=== PATIENT | female | born 1955 | race Caucasian/White ===

== ENCOUNTER → 2017-10-05 19:03 | Outpatient (CLI) | payer OTHER, SELFPAY | PROVIDERS: Family Provider Internal Medicine; PCP Internal Medicine; Visit Provider Obstetrics & Gynecology | DX: N39.0 Urinary tract infection, site not specified (principal); N89.8 Other specified noninflammatory disorders of vagina | CPT/HCPCS: 87086; 87088 ==

== ENCOUNTER → 2017-10-19 13:51 | Outpatient (CLI) | payer OTHER, SELFPAY ==
--- NOTE | 2017-10-19 | MISC_PTH ---
PATIENT: BARBIE SANTOS LOC: [facility] U#:[id number] AGE/SX: 70/F ROOM: RE10/19/[address]: Dr. Ángel Sparrow MD : [id number] BED: DIS: SPEC #: [id number] RECD: 10/19/17 14:39 STATUS: CHRISTIANO JAZMIN #: [id number] AGUILAR: 10/19/17 00:[address]: Ángel Sparrow DEPT: SURGICAL PATHOLOGY RECD BY: Robbi Shirley ENTERED: 10/19/17 14:40 SP TYPE: [facility] [place] DR: Dr. Millie Adorno DO Tissues: A - Lip, NOS (labia) B - Lip, NOS (labia) Procedures: Surgery Specimen Level IV HEADER OPERATION: Vulvar labial biopsy PRE-OP DIAGNOSIS: Leukoplakia pruritus vulva; postmenopausal status TISSUE SUBMITTED: A ? Left labia, B ? Right labia, leukoplakia MICROSCOPIC DIAGNOSIS A. Left labia, biopsy: Mild chronic dermal inflammation. No evidence of dysplasia. B. Right labia, biopsy: Mild chronic dermal inflammation. No evidence of dysplasia. AM:wilder 10/22/17 COMMENT A & B. The lesions could represent early lichen sclerosus. Clinical correlation is suggested. Case has been reviewed in consultation with Dr. Cho who concurs with the above diagnosis. IDC:SJ MICROSCOPIC DESCRIPTION Slides are reviewed. GROSS DESCRIPTION A - Received in fixative is one container labeled with the patient's name and designated left labia. The specimen consists of one irregular fragment of light veneg[place] soft tissue that measures 0.8 x 0.3 x 0.1 cm. The specimen is totally submitted in one cassette. B - Received in fixative is one container labeled with the patient's name and designated right labia. The specimen consists of one irregular fragment of light venegas soft tissue that measures 0.2 x 0.1 x <0.1 cm. The specimen is totally submitted in one cassette. / AM:wilder 10/19/17 TC:3 CPT: 98348 x2
== END ==
PROVIDERS: Family Provider Internal Medicine; PCP Internal Medicine; Visit Provider Obstetrics & Gynecology
DX: N90.4 Leukoplakia of vulva (principal); L29.2 Pruritus vulvae; N95.9 Unspecified menopausal and perimenopausal disorder
CPT/HCPCS: 88305

== ENCOUNTER → 2017-11-02 19:35 | Outpatient (CLI) | payer OTHER, SELFPAY ==
[2017-11-06 11:34] LABS: HPV APTIMA, High Risk Negative (Negative)
== END ==
PROVIDERS: Family Provider Internal Medicine; PCP Internal Medicine; Visit Provider Obstetrics & Gynecology
DX: Z12.4 Encounter for screening for malignant neoplasm of cervix (principal)
CPT/HCPCS: 88175; G0145

== ENCOUNTER → 2018-01-05 14:52 | Outpatient (CLI) | payer OTHER, SELFPAY ==
--- NOTE | 2018-01-05 14:54 | BI_ITS ---
MAMMOGRAPHY - BILATERAL SCREENING REASON FOR EXAM: Female, 62 years old. Routine annual screening examination. PERTINENT HISTORY: NO FAM HX VAG PILL X 2 MONTHS NO SX HRT CHANGED 2 MONTHS AGO PT C/O BREAST TENDERNESS TECHNIQUE: Digital bilateral breast jared (3D mammographic acquisition) in the CC and MLO projections. 2-D mediolateral oblique (MLO) and craniocaudad (CC) views of both breasts were obtained. CAD: Full Field Digital Mammography with Computer Added Detection was performed. COMPARISON: Dec 08 2016 9:07am, Dec 07 2015 10:07am FINDINGS: Breast Composition: The breasts are extremely dense, which lowers the sensitivity of mammography. There are no dominant masses or suspicious calcifications. No other significant abnormalities are identified. BI/SCREENING MAMM (CAD), BILAT IMPRESSION: Stable bilateral screening mammogram. Yearly follow-up mammogram recommended. (A) ASSESSMENT CATEGORY: BIRADS Category 2: Benign. A letter regarding these results will be sent to the patient by the facility within 30 days. Approximately 10% of breast cancers are not detected by mammography. A normal mammogram should not delay biopsy of a clinically suspicious abnormality. [id number] Electronically Signed: Mandy Plaza MD at 13:26 EDT Tel , Service support ,
== END ==
PROVIDERS: Family Provider Internal Medicine; PCP Internal Medicine; Visit Provider Obstetrics & Gynecology
DX: Z12.31 Encounter for screening mammogram for malignant neoplasm of breast (principal)
CPT/HCPCS: 77063; 77067

== ENCOUNTER → 2019-01-06 | Outpatient (CLI) | payer OTHER, SELFPAY ==
--- NOTE | 2019-01-06 09:57 | BI_ITS ---
MAMMOGRAPHY - BILATERAL SCREENING 3-D TOMOSYNTHESIS REASON FOR EXAM: Female, 63 years old. Bilateral Screening 3-D tomosynthesis PERTINENT HISTORY: No significant family history. TECHNIQUE: 2-D mammograms and 3-D Tomosynthesis of the breast (s) were performed. CAD was performed. COMPARISON: January 05, 2018. FINDINGS: The breast composition is composed of scattered fibroglandular density. Scattered benign calcifications are seen. No dense spiculated masses or suspicious microcalcifications are identified. No architectural distortion is identified. There is no skin thickening or retraction. There has been no significant change since the prior study. BI/SCREENING MAMM (CAD), BILAT IMPRESSION: No mammographic signs of malignancy. Routine yearly mammograms recommended. ASSESSMENT CATEGORY: BIRADS Category 1: Negative. A letter regarding these results will be sent to the patient by the facility within 30 days. FOLLOW UP RECOMMENDATION: Yearly follow up mammogram recommended. (A) Approximately 10% of breast cancers are not detected by mammography. A normal mammogram should not delay biopsy of a clinically suspicious abnormality. Electronically Signed: Joseph Palmer MD at 14:31 EDT , Service support ,
== END | disposition home or self-care (01) ==
LOC: OPBI 09:56
PROVIDERS: Family Provider Internal Medicine; PCP Internal Medicine; Referring Provider Obstetrics & Gynecology; Visit Provider Obstetrics & Gynecology
DX: Z12.31 Encounter for screening mammogram for malignant neoplasm of breast (principal)
CPT/HCPCS: 77063; 77067

== ENCOUNTER → 2019-02-11 | Outpatient (CLI) | payer OTHER, SELFPAY ==
[2019-02-11 11:05] LABS: Hematocrit 39.9 % (37-47); Hemoglobin 13.1 g/dl (12.0-15.0); Mean Corp Hgb Conc 32.8 g/gl (32-36); Mean Corpuscular Hgb 30.8 pg (27.0-32.0); Mean Corpuscular Volume 93.9 fL (81-99); Mean Platelet Vol. 11.1 fl (6.2-12.0); Platelet Count 243 K/mm3 (150-450); RBC Distribution Width CV 13.3 % (11.6-14.6); RBC Distribution Width SD 45.2 fl (35.1-43.9); Red Blood Count 4.25 M/mm3 (4.2-5.4); White Blood Count 5.1 K/mm3 (4.4-11.0)
[2019-02-11 11:08] LABS: Scan Indicated on CBC? Y/N NO
[2019-02-11 11:18] LABS: D-Dimer Quantitative (DVT/PE) < 0.27 FEU/ug/m (0.27-0.49)
[2019-02-11 11:23] LABS: Albumin, Serum 4.1 g/dL (3.2-5.0); BUN 14 mg/dL (7-18); BUN/Creat Ratio 18.7 RATIO (10-20); Calcium,Total 9.8 mg/dL (8.5-10.1); Chloride 104 mmol/L (98-107); Creatinine, Serum 0.75 mg/dL (0.55-1.02); EST Glomerular Filtration Rate 83 mL/min (>60); Est Glom Filt Rate - Afr Amer 101 mL/min (>60); Glucose 96 mg/dL (74-106); Phosphorus 3.6 mg/dL (2.5-4.9); Potassium 4.7 mmol/L (3.5-5.1); Sodium Level 139 mmol/L (136-145); T4 Free Direct 0.91 ng/dL (0.76-1.46); Thyroid Stim Hormone (TSH) 1.83 uIU/mL (0.358-3.74)
== END | disposition home or self-care (01) ==
LOC: LABSPEC 10:54
PROVIDERS: Family Provider Internal Medicine; PCP Internal Medicine; Referring Provider Internal Medicine; Visit Provider Internal Medicine
DX: R00.2 Palpitations (principal)
CPT/HCPCS: 80069; 84439; 84443; 85027; 85379

== ENCOUNTER 2019-05-25 09:50 | Outpatient (RCR) | payer OTHER, SELFPAY ==
--- NOTE | 2019-05-25 10:57 | HP.PTEVAL ---
Patient's Visit Information BARBIE SANTOS is a 64 year old F referred to Physical Therapy by Ria Lopez DO with a diagnosis of L buttock pain/Ischial tuberosity pain. Date of Evaluation: 05/25/19 Physical Therapist: MAURISIO Hassan - Visit Plan Frequency: 1-2x /Week Duration: 4 Weeks Plan: 1-2X/ week for 4 weeks if needed for foam rolling to L HS/piriformis, HS and piriformis stretching, MT deep/ US to the L ischial tuberoisuty if needed, Hip including HS strengthening with I HEP. - Subjective Findings: Pt reports that she has L ischial tuberosity butt pain and it is hard to sit and it has been 3 weeks now. She had been walking every day and yoga and has tried to lay off. She was offered prednizone but did not want it as she just got off of it due to poison giovany. There was no injurry. SHe did have this a year ago and sat on bleechers for awhile. It is hard to sit and bend over, move, and she feels it going up the stairs. She feels pulling when laying down but not throbbing. No N&T and not back pain. The only thing she did around the time it started was when she was bending to do gardening... noticed it the next day. She does not feel weakness in her legs. It is better since a few weeks ago but she has backed off her exercises. Getting in and out of the car is one of the worst things. - Pain L buttock pain Pain Intensity (Out of 10): 5 Pain Intensity Range: 8 - Objective Gait: decreased stance time on the L side. LE MMT: B hip flex 4-/5, B knee flex and ext 4/5, B hip abd 4/5, B hip ext 4/5. Pt is able to walk on heels and toes I and has full ROM bridge. Pt is point tender on the L ischial tuberosity. Pt has tight HS on the L and tight piriformis on the L. Prone press ups X 10 ( no change in ischial pain). Point tenderness with foam rolling over the L ischial tuberosity - Goals Goal 1:: I HEP Goal Time Frame: 2-4 Weeks Goal 2:: Decrease L buttock hip pain to 0/10 with return to walking routine and yoga Goal Time Frame: 2-4 Weeks Goal 3:: Increase HS and priformis flexibity to normal on the L Goal Time Frame: 2-4 Weeks - Rehabilitation Potential Rehabilitation Potential: Good - Anticipated Interventions Thank you for the opportunity to evaluate your patient. For Medicare and Medicare HMO plans, please review the plan of care and approve it. It will need to be FAXED BACK to us at [phone] for Medicare purposes. For Medicare only, by signing this I certify the plan of care. Please let me know if there are questions or concerns regarding this plan of care. Physician Signature: Date:
--- NOTE | 2019-06-28 14:00 | HP.PT.NRP ---
HP - Discharge Summary (1) - Patient Information BARBIE SANTOS was seen in my office for initial evaluation on 05/25/19. The following Plan of Care was established for this patient: Initial Frequency: 1-2x /Week Initial Duration: 4 Weeks This patient was last seen in our office 05/25/19. Pertinent comments regarding their Physical therapy will appear below: Pt did not return after inital eval and will be discharged. At this point I will be discontinuing this patient from physical therapy. I would be happy to see this patient again in the future if found appropriate by the physician. Thank you! Roxanne Christopher, MPT
== END 2019-05-25 19:00 | disposition home or self-care (01) ==
LOC: PT 09:50
PROVIDERS: Family Provider Internal Medicine; PCP Internal Medicine; Referring Provider Internal Medicine; Visit Provider Internal Medicine
DX: R52 Pain, unspecified (principal)
CPT/HCPCS: 97110; 97161

== ENCOUNTER 2019-07-18 07:30 | Outpatient (RCR) | payer SELFPAY ==
--- NOTE | 2019-08-23 11:46 | HP.PT.NRP ---
HP - Discharge Summary (1) - Patient Information BARBIE SANTOS was seen in my office for initial evaluation on . The following Plan of Care was established for this patient: This patient was last seen in our office . Pertinent comments regarding their Physical therapy will appear below: Self pay dry needling- appropriate to d/c chart At this point I will be discontinuing this patient from physical therapy. I would be happy to see this patient again in the future if found appropriate by the physician. Thank you! DIRK YarbroughT
== END 2019-07-18 19:00 | disposition home or self-care (01) ==
LOC: PT 07:30
PROVIDERS: Family Provider Internal Medicine; PCP Internal Medicine
DX: R10.2 Pelvic and perineal pain (principal)

== ENCOUNTER → 2020-03-21 | Outpatient (CLI) | payer OTHER, SELFPAY ==
[2020-03-28 03:50] LABS: HPV Reflexed? NOT INDICATED
== END | disposition home or self-care (01) ==
LOC: LABSPEC 13:10
PROVIDERS: PCP Internal Medicine; Visit Provider Obstetrics & Gynecology
DX: Z12.4 Encounter for screening for malignant neoplasm of cervix (principal)
CPT/HCPCS: 88175; G0145

== ENCOUNTER → 2020-05-31 | Outpatient (CLI) | payer OTHER, SELFPAY ==
--- NOTE | 2020-05-31 14:15 | BI_ITS ---
MAMMOGRAPHY - BILATERAL SCREENING REASON FOR EXAM: Female, 65 years old. Routine annual screening examination. PERTINENT HISTORY: Non-contributory. TECHNIQUE: Digital bilateral breast sergo (3D mammographic acquisition) in the CC and MLO projections. 2-D mediolateral oblique (MLO) and craniocaudad (CC) views of both breasts were obtained. CAD: Full Field Digital Mammography with Computer Added Detection was performed. COMPARISON: Comparison is made with prior examination dated 01/06/2019 and 01/05/2018. FINDINGS: Breast Composition: There are scattered areas of fibroglandular density. There are no dominant masses or suspicious calcifications. No other significant abnormalities are identified. There has been no significant change since the prior study. BI/SCREEN MAMM (CAD) W/SERGO BILAT IMPRESSION: Stable bilateral screening mammogram. Yearly follow-up mammogram recommended. (A) ASSESSMENT CATEGORY: BIRADS Category 1: Negative. A letter regarding these results will be sent to the patient by the facility within 30 days. Approximately 10% of breast cancers are not detected by mammography. A normal mammogram should not delay biopsy of a clinically suspicious abnormality. [id number] Electronically Signed: Chin Resendez, at 15:27 EDT , Service support ,
== END | disposition home or self-care (01) ==
LOC: OPBI 14:12
PROVIDERS: PCP Internal Medicine; Referring Provider Obstetrics & Gynecology; Visit Provider Obstetrics & Gynecology
DX: Z12.31 Encounter for screening mammogram for malignant neoplasm of breast (principal)
CPT/HCPCS: 77063; 77067

== ENCOUNTER 2020-07-19 15:57 | Outpatient (RCR) | payer SELFPAY ==
--- NOTE | 2020-08-16 10:53 | HP.PT.NRP ---
BARBIE Yohannes SANTOS was seen in my office for initial evaluation on . The following Plan of Care was established for this patient: This patient was last seen in our office . Pertinent comments regarding their Physical therapy will appear below: Dry Needle- self pay-dc chart At this point I will be discontinuing this patient from physical therapy. I would be happy to see this patient again in the future if found appropriate by the physician. Thank you! DIRK YarbroughT
== END 2020-07-19 19:00 | disposition home or self-care (01) ==
LOC: PT 15:57
PROVIDERS: PCP Internal Medicine
DX: R69 Illness, unspecified (principal)

== ENCOUNTER 2020-09-18 09:30 | Outpatient (RCR) | payer OTHER, SELFPAY ==
--- NOTE | 2020-09-14 12:39 | HP.OTEVAL ---
Patient's Visit Information BARBIE SANTOS is a 65 year old F, referred to Occupational Therapy by Dr. Ria Lopez DO, with a diagnosis of right hand pain. Date of Evaluation: 09/13/20 Occupational Therapist: Sary De Anda, BENTLEYR/Cheikh, CHT - Subjective This 65 year old female was seen for OT with dx of hand pain. Pt states she was seen last year to hand specialsit who dx with tenosynovitis- pt states she has had difficulty with returning back to her daily tasks. pt states she does do yoga, plays the Volvant, difficulty sleeping- February- Apr pain until she went to Dr. has had cortisone shot but has not been -. pt states she has iced in the past. pt states she does wear a right wrist brace. - Pain right hand 3 Pain Intensity Range: 7, 8 - ROM Wrist: right 40/55 left 60/70 - Strength Chemical Operations Specialist: right 15# left 40# Lateral Pinch: right 2# left 8# Tripod Pinch: right 4# left 10# - Goals Goal:: PT will demo an increase in butter production supervisor strength by 20# to increase independent with basic occupations of daily living to return pt to PLOF by D/C. Pt will demo an increase in lateral and tripod pinch by 2# to increase pts independent with opening baggies, containers at PLOF by D/C. Goal:: Pt will demo an increase in wrist ROM equal to unaffected wrist to return pt to PLOF with grooming, dressing and home mtg tasks by D/C. Goal:: Pt will report pain no greater than 1/10 with use of affected hand with BADLs and IADLs by d/c. Goal:: Pt will demo understanding of joint protection and ergonomics when performing BADLs and IADLs by d/c. Pt will demo understanding of adaptive Equipment use to decrease stress on joints to allow pt to perform BADSL and IADLS at SHANNA level. - Rehabilitation General Assessment: pt demo with pain and limited ROM and strength to perform her ADLs and IADLs at a IND. level. pt would benefit from skilled OT services 2x week for 4 weeks to decrease pts pain increase pts strength and return pt to PLOF with ADLs and IADLs. pt demo understanding and agree to POC Rehabilitation Potential: Good - Anticipated Interventions A/AAROM/PROM, Strengthening, Triggerpoint Release, Desensitization, Modalities, Orthoses, Joint Protection/Energy Conservation, Ergonomic Education - Visit Plan Frequency: 2x /Week Duration: 4 Weeks TEXT: Thank you for the opportunity to evaluate your patient. For Medicare and Medicare HMO plans, please review the plan of care and approve it. It will need to be FAXED BACK to us at [phone] for Medicare purposes. Please let me know if there are questions or concerns regarding this plan of care. Physician Signature: Date:
--- NOTE | 2020-12-20 09:55 | HP.OT.NRP ---
BARBIE SANTOS was seen in my office for initial evaluation on 09/13/20. The following Plan of Care was established for this patient: Initial Frequency: 2x /Week Initial Duration: 4 Weeks Anticipated Interventions: A/AAROM/PROM, Strengthening, Triggerpoint Release, Desensitization, Modalities, Orthoses, Joint Protection/Energy Conservation, Ergonomic Education This patient was last seen in our office 09/18/20. Pertinent comments regarding their Occupational therapy will appear below: pt was seen for 2 OT sessions- [facility] and due to time lapse in services pt is d/c At this point I will be discontinuing this patient from occupational therapy. I would be happy to see this patient again in the future if found appropriate by the physician. Thank you! Sary De Anda, OTR/L, CHT
== END 2020-09-18 19:00 | disposition home or self-care (01) ==
LOC: OT 09:30
PROVIDERS: PCP Internal Medicine; Referring Provider Internal Medicine; Visit Provider Internal Medicine
DX: M79.643 Pain in unspecified hand (principal)
CPT/HCPCS: 97035; 97140; 97166; 97530

== ENCOUNTER → 2021-05-29 10:12 | Outpatient (CLI) | payer MEDICARE, OTHER, SELFPAY ==
[2021-05-29 11:29] LABS: Absolute Neutrophil Count 4.2 X10^3/uL (2.0-7.7); Basophil# 0.04 X10^3/uL; Basophil% 0.6 % (0-1); Eosinophil# 0.16 X10^3/uL; Eosinophils% 2.6 % (0-5); Hematocrit 39.3 % (37-47); Lymphocyte % 22.4 % (19-41); Mean Corp Hgb Conc 33.1 g/dL (32-36); Mean Corpuscular Hgb 31.6 pg (27.0-32.0); Mean Corpuscular Volume 95.6 fL (81-99); Mean Platelet Vol. 10.3 fl (6.2-12.0); Monocyte# 0.42 X10^3/uL; Monocyte% 6.7 % (0-10); NRBC Flagged by Analyzer 0 % (0-5); Neutrophil # 4.21 X10^3/uL (2.7-7.7); Neutrophil % 67.4 % (47-70); Platelet Count 303 K/mm3 (150-450); RBC Distribution Width CV 12.7 % (11.6-14.6); RBC Distribution Width SD 44.5 fl (35.1-43.9); Red Blood Count 4.11 M/mm3 (4.2-5.4); White Blood Count 6.3 K/mm3 (4.4-11.0)
[2021-05-29 11:55] LABS: AST(SGOT) 27 U/L (15-37); Alanine Aminotransfer ALT/SGPT 28 U/L (13-56); Alkaline Phosphatase 114 U/L (45-117); Bilirubin, Direct 0.09 mg/dL (0.00-0.30); Globulin 4.2 g/dL (2.2-4.2); Protein, Total 8.2 g/dL (6.4-8.2)
[2021-05-29 12:33] LABS: HIV - WCH Non-Reactive (Nonreactive); Hepatitis B Surface Antibody Non-Reactive; Hepatitis B Surface Antigen Non-Reactive (Nonreactive); Hepatitis C Antibody Non-Reactive (Nonreactive)
[2021-06-02 03:07] LABS: QNTFERON TB Mitogen Value > 10.00 IU/mL (.); QNTFERON TB Nil Value 0.03 IU/mL (.); QNTFERON TB1+ Ag Value 0.03 IU/mL (.); QNTFERON TB2+ Ag Value 0.05 IU/mL (.)
[2021-06-02 08:38] LABS: Hepatitis B Core AB IgM Negative (Negative); QNTIFERON TB Positive Criteria Negative (Negative)
== END ==
LOC: LAB 10:18
PROVIDERS: PCP Internal Medicine; Referring Provider Dermatology; Visit Provider Dermatology
DX: L30.9 Dermatitis, unspecified (principal); Z79.899 Other long term (current) drug therapy
CPT/HCPCS: 36415; 80076; 85025; 86480; 86703; 86705; 86706; 86803; 87340

== ENCOUNTER 2021-07-22 12:24 | Outpatient (RCR) | payer SELFPAY ==
--- NOTE | 2021-08-14 09:25 | HP.PT.NRP ---
BARBIE SANTOS was seen in my office for initial evaluation on . The following Plan of Care was established for this patient: This patient was last seen in our office . Pertinent comments regarding their Physical therapy will appear below: DN self pay d/c At this point I will be discontinuing this patient from physical therapy. I would be happy to see this patient again in the future if found appropriate by the physician. Thank you! DIRK YarbroughT
== END 2021-07-22 19:00 | disposition home or self-care (01) ==
LOC: PT 12:24
PROVIDERS: PCP Internal Medicine
DX: R69 Illness, unspecified (principal)

== ENCOUNTER → 2021-08-21 11:21 | Outpatient (CLI) | payer MEDICARE, OTHER, SELFPAY ==
--- NOTE | 2021-08-21 11:23 | BI_ITS ---
MAMMOGRAPHY - BILATERAL SCREENING REASON FOR EXAM: Female, 66 years old. Routine annual screening examination. PERTINENT HISTORY: Non-contributory. TECHNIQUE: Digital bilateral breast sergo (3D mammographic acquisition) in the CC and MLO projections. 2-D mediolateral oblique (MLO) and craniocaudad (CC) views of both breasts were obtained. CAD: Full Field Digital Mammography with Computer Added Detection was performed. COMPARISON: Comparison is made with prior study to 05/31/2020 and 01/06/2019. FINDINGS: Breast Composition: There are scattered areas of fibroglandular density. There are no dominant masses or suspicious calcifications. No other significant abnormalities are identified. There has been no significant change since the prior study. BI/SCRN MAMM (CAD)W/SERGO BILAT IMPRESSION: Stable bilateral screening mammogram. Yearly follow-up mammogram recommended. (A) ASSESSMENT CATEGORY: BIRADS Category 1: Negative. A letter regarding these results will be sent to the patient by the facility within 30 days. Approximately 10% of breast cancers are not detected by mammography. A normal mammogram should not delay biopsy of a clinically suspicious abnormality. [id number] Electronically Signed: Chin Resendez MD at 12:06 EST , Service support ,
== END ==
PROVIDERS: PCP Internal Medicine; Referring Provider Obstetrics & Gynecology; Visit Provider Obstetrics & Gynecology
DX: Z12.31 Encounter for screening mammogram for malignant neoplasm of breast (principal)
CPT/HCPCS: 77063; 77067

== ENCOUNTER 2021-09-13 10:00 | Outpatient (RCR) | payer MEDICARE, OTHER, SELFPAY ==
--- NOTE | 2021-08-12 10:53 | HP.PTEVAL_ITS ---
Patient's Visit Information BARBIE SANTOS is a 66 year old F referred to Physical Therapy by ANNA Mata with a diagnosis of R fib fracture. Date of Evaluation: 08/12/21 Physical Therapist: Juarez Pillai, DIRKT, OCS, CSCS - Visit Plan Frequency: 1x/Week Duration: 4-6 Weeks Plan: weekly to every other for progression of HEP ROM and strength/proprioception. Next session if steps are reciprocal without pain and ROM full then teach strength ankle and steamboats for HEP. Ensure progression of walking program at home - Subjective Broke R ankle. Rolled in end Of June walking off a mat. Happened on way [place] and went to urgent care that day and x ray the next day. Put in aircasrt and stayed off of it and ice and elevate. Used WC at home as she lives in ranch home. Has shower chair. Then went to [facility] and had more x rays to clear medial side. Then was allowed to bear weight with aircast. Now is FWB since last Thursday with ankle brace. Is a little more sore but still improving overall. Has walked up and down street 3x and gave up shower chair. Needs to ice it now and then. Still swells at t imes. Wears brace at home until evening. Pain is not a problem and never was other than tenderness. Sleep is OK. Wants to get back to walking a few miles per day and cross country ski. Needs to climb bleachers as she crawled up bleachers last week. - Objective Walks into PT fairly well, I without antalgia. Trasnfers I. Steps reciprocal with some R ankle discomfort desdcending planting on R. SLS R 4 sec and L 10 sec. AROM R ankle DF 2 and L is 8, PF 55 B, inv and ev symmetrical. No pain until OP of DF and inv slightly. No unusual swelling or tenderness today. Strength DF 4R and 4+ L, inv 4- R and 4 L, eversion 4- R and 4 L, PF 4 B. Sensation to touch is WNL B ankles and feet. reflexes 2/3 patella and achilles B. Strength knees and hips 4- symmetrical. - Balance/Special Test Scores Functional Gait Assessment Score: 29 % Disability: 3.3400 Lower Extremity Functional Score: 42 - Goals Goal 1:: 30/30 FGA including up and down steps without pain or railings Goal Time Frame: 4-6 Weeks Goal 2:: I approp HEP to get back to normal Goal Time Frame: 4-6 Weeks Goal 3:: Walk 3 miles without pain or problems Goal Time Frame: 4-6 Weeks Goal 4:: Pt feel 100% back to normal activity. Goal Time Frame: 4-6 Weeks Goal 5:: 62 LEFS Goal Time Frame: 4-6 Weeks - Rehabilitation Potential Physical Therapy Diagnosis: Some gait deficits from R fib fracture. Rehabilitation Potential: Excellent - Anticipated Interventions Patient/Client Instruction: Educate patient on: Condition, Plan of Care For the Purpose of:: To increase ROM, To improve nutrient delivery to tissue, To increase tolerance to activity/condition/position, To improve ability of physical actions for home/community/work/leisure, To improve gait and locomotor functions Therapeutic Exercise to Include: Strength training, Balance training, Flexibilty training, Gait and locomotor training, Passive ROM, Active ROM For the Purpose of:: To increase ROM, To improve muscle performance and motor function, To increase tolerance to activity/condition/position, To improve ability of physical actions for home/community/work/leisure, To improve gait and locomotor functions Thank you for the opportunity to evaluate your patient. For Medicare and Medicare HMO plans, please review the plan of care and approve it. It will need to be FAXED BACK to us at [phone] for Medicare purposes. For Medicare only, by signing this I certify the plan of care. Please let me know if there are questions or concerns regarding this plan of care. Physician Sign ature: Date:
--- NOTE | 2021-09-13 10:29 | HP.PTDCSUM_ITS ---
It has been my pleasure to treat BARBIE SANTOS referred by ANNA Mata, with the diagnosis of R fib fracture for a total of 3 visit(s). Discharge Date: 09/13/21 Please see the following information for a summary of their discharge status. Subjective: No problems. walking normal amount without pain. [facility]ed at [facility] with friends without a problem. Sleeping OK. HEP going well. Balance feels OK. % Improvement: 100 Objective/Function: Full and symmetrical aROM R to L ankle. strength is symmet rical at 4+/5 in all directions. FGA is perfect Goal 1:: FGA including up and down steps without pain or railings Goal Progress: Goal Met Goal 2:: I approp HEP to get back to normal Goal Progress: Goal Met Goal 3:: Walk 3 miles without pain or problems Goal 4:: Pt feel 100% back to normal activity. Goal Progress: Goal Met Goal 5:: 62 LEFS Goal Progress: Goal Met Plan: d/c, pt doing very well adn back to normal activity. If there are questions or concerns regarding this patient's physical therapy, please feel free to call me at [phone]. Thank you for the referral of this patient. Sincerely, Juarez Pillai, DPT, OCS, CSCS Balance/Gait/Functional tests - Balance/Special Test Scores Functional Gait Assessment Score: 30 % Disability: 0 Lower Extremity Functional Score: 64
== END 2021-09-13 19:00 | disposition home or self-care (01) ==
LOC: PT 10:00
PROVIDERS: PCP Internal Medicine; Referring Provider Physician Assistant Surgical; Visit Provider Physician Assistant Surgical
DX: S82.64XD Nondisplaced fracture of lateral malleolus of right fibula, subsequent encounter for closed fracture with routine healing (principal)
CPT/HCPCS: 97110; 97161; 97164; 97530

== ENCOUNTER → 2022-01-30 | Outpatient (CLI) | payer MEDICARE, OTHER, SELFPAY ==
--- NOTE | 2022-01-30 08:26 | BD_ITS ---
STUDY: DUAL ENERGY X-RAY ABSORPTIOMETRY / DXA REASON FOR EXAM: Female, 66 years old. [id number]. Patient is postmenopausal. TECHNIQUE: Bone Mineral Density (BMD) measurements of lumbar spine and bilateral hips were obtained. COMPARISON: Comparison is made with prior study dated 07/01/2017. FINDINGS: Lumbar Spine (L1-L4): g/cm2 (0.789) / T-score (-2.3) / Z-score (-0.5) Findings are suggestive of osteopenia with a high fracture risk. Left Femur Total: g/cm2 (0.900) / T-score (0.3) / Z-score (0.9) Left Femoral Neck: g/cm2 (0.783) / T-score (-0.6) / Z-score (1.0) Right Femur Total: g/cm2 (0.859) / T-score (-0.7) / Z-score (0.6) Right Femoral Neck: g/cm2 (0.777) / T-score (-0.7) / Z-score (0.9) The T-Scores on the most recent prior examination were: Lumbar Spine (L1-L4): There has been worsening of bone density since the previous examination. Left Femur Total: which represents a worsening of 7.2%. Right Femur Total: which represents a worsening of 8.7%. BD/Dexa Bone Density Study IMPRESSION: The patient is considered osteopenic as outlined below according to World Jovi Organization (WHO) criteria with a high fracture risk. There has been worsening of bone density since the previous examination. Reference Information: The T-score is the number of standard deviations above or below the standard which is normal for young adults at their peak bone mineral density. The World Health Organization (WHO) interprets the T-scores as follows: Above -1 Normal bone density Between -1 and -2.5 Osteopenia Equal to / or below -2.5 Osteoporosis As a practical clinical guideline, osteopenia may be graded as follows: Mild -1 through -1.5 Moderate -1.6 through -2.0 Severe -2.1 through -2.4 The Z-score is the number of standard deviations above or below age-matched controls. A Z-score of less than -1.5 would be considered abnormal. References: 1. NIH Osteoporosis and Related Bone Diseases www osteo.org 2. International Society for Clinical Densitometry www iscd.org 3. National Osteoporosis Foundation www nof.org Electronically Signed: Chin Resendez MD at 12:53 EDT ,
== END | disposition home or self-care (01) ==
LOC: OPBD 08:22
PROVIDERS: PCP Internal Medicine; Visit Provider Internal Medicine
DX: Z78.0 Asymptomatic menopausal state (principal)
CPT/HCPCS: 77080

== ENCOUNTER → 2022-07-14 | Outpatient (CLI) | payer SELFPAY ==
--- NOTE | 2022-07-14 12:35 | CT_ITS ---
STUDY: CT Chest W/O Contrast Injection 07/14/2022 1:41 PM REASON FOR EXAM: Female, 67 years old. SCREENING Individualized dose optimization techniques were used for this CT. TECHNIQUE: Transaxial imaging was performed withoutIV contrast material. COMPARISON: None. FINDINGS: There is no pneumothorax. There is no demonstrated pleural abnormality. Normal heart and pericardium with no evidence for calcifications of the coronary arteries. Normal mediastinum. Normal hilar regions. Normal pulmonary arteries. There is atherosclerotic calcification of the aortic arch with tortuosity and elongation of the aortic arch and descending thoracic aorta. There are multi-level degenerative changes of the thoracic spine. There are no acute findings of the upper abdomen. CT/Limited Chest CT Cardiac Only IMPRESSION: There are no acute findings. Electronically Signed: Alan Sauer MD at 14:23 EST ,
[2022-07-14 12:54] VITALS: BP 141/74; PULSE 58; RESP 18; TEMP 36.6; O2SAT 98; BMI 25.7
--- NOTE | 2022-07-14 18:10 | CA.SCORE ---
Calcium Scoring Date of Study:: 07/14/22 Coronary Calcium Scoring: High-resolution Computed Tomographic imaging of the chest was performed on [07/14/22 ], with particular attention paid to the coronary arteries. Images from the examination were analyzed for the presence and extent of coronary artery calcification , using coronary calcium quantification software. The patient tolerated the procedure well and there were no complications. The results of the coronary calcification analysis are provided below. Findings Coronary Artery Left Main (LM): 0 Left Anterior Descending (LAD): 0 Left Circumflex (LCX): 0 Right Coronary Artery (RCA): 0 Total Agatston Score: 0 Percentile Rankin Calcium Scoring Interpretation: 0 No identifiable atherosclerotic plaque. Very low cardiovascular disease risk. <5% chance of presence coronary artery disease A Negative Examination 1-10 Minimal Plaque burden. Significant coronary artery disease very unlikely. 11-100 Mild plaque burden. Likely mild or minimal coronary atherosclerosis. 101-400 Moderate plaque burden Moderate non-obstructive coronary artery disease highly likely. Over 400 Extensive plaque burden. High likelihood of at least one significant coronary stenosis (>50% diameter) Calcium Score: 0 Negative Examination
== END | disposition home or self-care (01) ==
PROVIDERS: PCP Internal Medicine; Referring Provider Internal Medicine; Visit Provider Internal Medicine
DX: E78.00 Pure hypercholesterolemia, unspecified (principal)
CPT/HCPCS: 75571; 76380

== ENCOUNTER → 2022-09-29 | Outpatient (CLI) | payer MEDICARE, OTHER, SELFPAY ==
--- NOTE | 2022-09-29 12:09 | BI_ITS ---
MAMMOGRAPHY - BILATERAL SCREENING REASON FOR EXAM: Female, 67 years old. Routine annual screening examination. PERTINENT HISTORY: Non-contributory. TECHNIQUE: Digital bilateral breast sergo (3D mammographic acquisition) in the CC and MLO projections. 2-D mediolateral oblique (MLO) and craniocaudad (CC) views of both breasts were obtained. CAD: Full Field Digital Mammography with Computer Added Detection was performed. COMPARISON: Comparison is made with prior examination dated 08/21/2021 and 05/31/2020. FINDINGS: Breast Composition: There are scattered areas of fibroglandular density. There are no dominant masses or suspicious calcifications. Stable small benign appearing bilateral axillary lymph nodes. No other significant abnormalities are identified. There has been no significant change since the prior study. BI/SCRN MAMM (CAD)W/SERGO BILAT IMPRESSION: Stable bilateral screening mammogram. Yearly follow-up mammogram recommended. (A) ASSESSMENT CATEGORY: BIRADS Category 1: Negative. A letter regarding these results will be sent to the patient by the facility within 30 days. Approximately 10% of breast cancers are not detected by mammography. A normal mammogram should not delay biopsy of a clinically suspicious abnormality. [id number] Electronically Signed: Chin Resendez MD at 13:20 EST ,
== END | disposition home or self-care (01) ==
LOC: OPBI 12:06
PROVIDERS: PCP Internal Medicine; Visit Provider Internal Medicine
DX: Z12.31 Encounter for screening mammogram for malignant neoplasm of breast (principal)
CPT/HCPCS: 77063; 77067

== ENCOUNTER → 2022-11-04 | Outpatient (CLI) | payer MEDICARE, OTHER, SELFPAY ==
[2022-11-04 12:24] LABS: Absolute Lymphocyte Count 1.48 X10^3/uL (0.83-4.51); Absolute Neutrophil Count 3.4 X10^3/uL (2.0-7.7); Basophil# 0.05 X10^3/uL; Basophil% 0.9 % (0-1); Eosinophil# 0.24 X10^3/uL; Eosinophils% 4.3 % (0-5); Hematocrit 38.3 % (37-47); Hemoglobin 12.6 g/dL (12.0-15.0); Lymphocyte # 1.48 X10^3/ul (0.83-4.51); Lymphocyte % 26.3 % (19-41); Mean Corp Hgb Conc 32.9 g/dL (32-36); Mean Corpuscular Hgb 30.5 pg (27.0-32.0); Mean Corpuscular Volume 92.7 fL (81-99); Mean Platelet Vol. 10.6 fl (6.2-12.0); Monocyte% 8.9 % (0-10); NRBC Flagged by Analyzer 0 % (0-5); Neutrophil # 3.35 X10^3/uL (2.7-7.7); Neutrophil % 59.4 % (47-70); Platelet Count 296 K/mm3 (150-450); RBC Distribution Width CV 12.4 % (11.6-14.6); RBC Distribution Width SD 42.2 fl (35.1-43.9); Red Blood Count 4.13 M/mm3 (4.2-5.4); White Blood Count 5.6 K/mm3 (4.4-11.0)
[2022-11-04 13:19] LABS: AST(SGOT) 23 U/L (15-37); Alanine Aminotransfer ALT/SGPT 26 U/L (13-56)
[2022-11-06 12:09] LABS: QNTFERON TB Mitogen Value > 10.00 IU/mL (.); QNTFERON TB Nil Value 0.04 IU/mL (.); QNTFERON TB1+ Ag Value 0.07 IU/mL (.); QNTFERON TB2+ Ag Value 0.05 IU/mL (.)
[2022-11-06 18:48] LABS: QNTIFERON TB Positive Criteria Negative (Negative)
== END | disposition home or self-care (01) ==
LOC: MTLAB 10:33
PROVIDERS: PCP Internal Medicine; Referring Provider Dermatology; Visit Provider Dermatology
DX: L40.0 Psoriasis vulgaris (principal); L40.59 Other psoriatic arthropathy; Z79.899 Other long term (current) drug therapy; D22.5 Melanocytic nevi of trunk; L82.1 Other seborrheic keratosis; D18.01 Hemangioma of skin and subcutaneous tissue; Z71.89 Other specified counseling
CPT/HCPCS: 36415; 84450; 84460; 85025; 86480

== ENCOUNTER → 2023-03-23 | Outpatient (CLI) | payer MEDICARE, OTHER, SELFPAY ==
--- NOTE | 2023-03-23 16:12 | RAD_ITS ---
INDICATION: SWELLING OF JOINT EXAMINATION/TECHNIQUE: X-RAY - LEFT XR Knee 4 Views COMPARISON: FINDINGS: SOFT TISSUES: No soft tissue swelling or gas. No radiopaque foreign body. BONES/JOINTS: No acute fracture or subluxation.. Normal alignment. Preservation of the joint space.. No sclerotic or destructive changes observed. RAD/Knee 4 or More Views IMPRESSION: Negative. Electronically Signed: Dereje Noonan DO at 21:26 EDT ,
== END | disposition home or self-care (01) ==
LOC: MTRAD 16:10
PROVIDERS: PCP Internal Medicine; Referring Provider Internal Medicine; Visit Provider Internal Medicine
DX: M25.462 Effusion, left knee (principal)
CPT/HCPCS: 73564

== ENCOUNTER → 2023-06-15 | Outpatient (CLI) | payer MEDICARE, OTHER, SELFPAY ==
[2023-06-17 16:10] LABS: HPV APTIMA, High Risk Negative (Negative)
== END | disposition home or self-care (01) ==
PROVIDERS: PCP Internal Medicine; Referring Provider Obstetrics & Gynecology; Visit Provider Obstetrics & Gynecology
DX: Z12.4 Encounter for screening for malignant neoplasm of cervix (principal)
CPT/HCPCS: 87624; 88175; G0145

== ENCOUNTER 2023-07-09 07:33 | Day surgery (SDC) | payer MEDICARE, OTHER, SELFPAY ==
[2023-07-09] VITALS (7 sets, daily range): BP systolic 84–115; BP diastolic 55–75; PULSE 60–68; RESP 16–18; TEMP 36.6–36.9; O2SAT 97–100; BMI 23.3
[2023-07-09] MEDS: Lactated Ringers 1,000 ML 15 ML IV (07:52)
--- NOTE | 2023-07-09 09:24 | HP.PCM_ITS ---
[facility] - General General Date of Admission: 07/09/23 Date of Service: 07/09/23 Chief Complaint: Screening colonoscopy HPI Narrative BARBIE SANTOS, is a 68 F who presents today for screening colonoscopy she had a colonoscopy approximately 10 years ago. The colonoscopy was normal. She has a past medical history of osteopenia, hyperlipidemia. She does not have any problems with her bowels. She has had no change in medicines. Overall she is in very good health. [facility] Medical History (Updated 07/09/23 @ 09:[address] Cooper Friend, DO) Broken jaw GERD (gastroesophageal reflux disease) Hyperlipidemia Non-smoker Osteopenia Psoriasis T-tube removal per patient Wears glasses Home Medications ezetimibe 10 mg tablet 10 mg PO DAILY 07/14/22 [History Last Taken Unknown] calcium carbonate 600 mg calcium (1,500 mg) tablet 600 mg PO DAILY 05/07/23 [History Last Taken Unknown] cholecalciferol (vitamin D3) 50 mcg (2,000 unit) capsule 50 mcg PO DAILY 05/07/23 [History Last Taken Unknown] ciclopirox 1 % shampoo 5 ml topical 2XW 05/07/23 [History Last Taken Unknown] clobetasol 0.05 % topical cream 1 applic topical 2XW PRN lichen sclerosis 05/07/23 [History Last Taken Unknown] risankizumab-rzaa 150 mg/mL subcutaneous syringe (Skyrizi) 150 mg subcut Q12W 05/07/23 [History Last Taken Unknown] Allergy/AdvReac Type Severity Reaction Status Date / Time No Known Allergies Allergy Verified 07/02/23 09:41 Surgical History History of ear surgery History of foot surgery History of hand surgery History of mandibular surgery History of tubal ligation Hx of colonoscopy Social History (Updated 06/15/23 @ 09:23 by Yakelin De León) adopted: No household members: spouse housing: house number of children: 2 current occupational status: previously employed and retired current occupation: retired current occupational exposures/hazards: No pets and animals: No Smoking Status: Never smoker alcohol intake: current details: socially substance use type: does not use caffeine: Yes what type of physical activity do you participate in: walking, yoga and other details: pickleball frequency: 5-6 times per week seatbelt use: always do you feel safe at home: Yes additional social history: - henry ROS Review of Systems ROS Unobtainable: other Constitutional Constitutional: Denies fatigue, fever(s), poor appetite, weight gain or weight loss ENT HEENT: Denies mouth lesions Cardiovascular Cardiovascular: Denies abdominal bloating, abdominal edema or abdominal pain Respiratory/Chest Respiratory/Chest: Denies change in mental status, change in phlegm color, chest congestion or chest tightness Gastrointestinal Gastrointestinal: Denies belching, bloating, change in bowel habits, change in stool character, chewing difficulty, coffee ground emesis, constipation, cramping, diarrhea, dyspepsia, dysphagia, early satiety, excessive flatus, fecal incontinence, heartburn, hematemesis, hematochezia, hemorrhoids, loose stools, melena, nausea, odynophagia, rectal bleeding, tenesmus, vomiting or weight changes Genitourinary Genitourinary: Denies abdominal discomfort, burning urination or itching Musculoskeletal Musculoskeletal: Reports as per HPI; Denies muscle weakness or myalgias Integumentary Integumentary: Denies jaundice Neurologic Neurologic: Denies lack of coordination or weakness Psychiatric Psychiatric: Denies confusion, depression, memory loss, mood swings, paranoia or suicidal ideation Endocrine Endocrinology: Denies systems reviewed and no addt'l complaints, except as documented Hematologic/Lymphatic Hematologic/Lymphatic: Denies anemia, easy bleeding, easy bruising or lymphadenopathy Allergic/Immunologic Allergic/Immunologic: Denies systems reviewed and no addt'l complaints, except as documented Vital Signs Vital Signs Vital Signs: 07/09/23 07:47 07/09/23 07:47 Temperature 97.8 F Temperature Source Temporal Pulse Rate 62 Respiratory Rate 18 Respiratory Pattern Normal Blood Pressure 115/63 Blood Pressure Mean 80 Blood Pressure Source Monitor Blood Pressure Position Semi-Fowlers Blood Pressure Location Right Arm Pulse Ox 100 Oxygen Delivery Method Room Air Weight Weight: 145 lb Body Mass Index (BMI) 23.3 Physical Exam Const alert General Appearance: cooperative Orientation / Consciousness: oriented to person HEENT hearing grossly normal bilaterally Head and Scalp: normal to inspection Face and Sinus: face symmetric Nose: external nose normal Mouth: oral and palatal mucosa normal Eyes conjunctivae normal General Eye: normal appearance of both eyes Neck full ROM General: normal visual inspection Lymph Lymphatic: no lymphadenopathy noted Chest inspection of chest normal and palpation of chest normal Chest: symmetrical chest wall rise Resp normal respiratory effort Effort and Inspection: able to speak in complete sentences Cardio regular rate GI non-distended Percussion: normal to percussion Rectal Exam: deferred Neuro Speech: speech normal Gait (Neuro): normal gait Assessment & Plan Assessment/Plan (1) Encounter for screening colonoscopy: PLAN: Will undergo screening colonoscopy. She was explained alternatives, risk, benefits including outstanding bleeding, infection, sepsis, perforation, need for emergent urgent . She will have an ASA of 2.
--- NOTE | 2023-07-09 10:02 | OP.COLON_ITS ---
Patient Name: Yuli Méndez Procedure Date: 07/09/2023 9:34 AM Date of : 1955 Age: 68 Procedure: Colonoscopy Indications: Screening for colorectal malignant neoplasm Providers: Kenneth Ernst DO Medicines: Monitored Anesthesia Care Patient Profile: This is a 68 year old female. Refer to note in patient chart for documentation of history and physical. Last Colonoscopy: 10 years ago. Complications: No immediate complications. Procedure: Pre-Anesthesia Assessment: - Prior to the procedure, a History and Physical was performed, and patient medications and allergies were reviewed. The patient is competent. The risks and benefits of the procedure and the sedation options and risks were discussed with the patient. All questions were answered and informed consent was obtained. Patient identification and proposed procedure were verified by the physician in the pre-procedure area. Mental Status Examination: normal. Airway Examination: normal oropharyngeal airway and neck mobility. Respiratory Examination: clear to auscultation. CV Examination: normal. Prophylactic Antibiotics: The patient does not require prophylactic antibiotics. Prior Anticoagulants: The patient has taken no anticoagulant or antiplatelet agents. ASA Grade Assessment: II - A patient with mild systemic disease. After reviewing the risks and benefits, the patient was deemed in satisfactory condition to undergo the procedure. The anesthesia plan was to use monitored anesthesia care (MAC). Immediately prior to administration of medications, the patient was re-assessed for adequacy to receive sedatives. The heart rate, respiratory rate, oxygen saturations, blood pressure, adequacy of pulmonary ventilation, and response to care were monitored throughout the procedure. The physical status of the patient was re-assessed after the procedure. After I obtained informed consent, the scope was passed under direct vision. Throughout the procedure, the patient's blood pressure, pulse, and oxygen saturations were monitored continuously. The pediatric colonoscope was introduced through the anus and advanced to the cecum, identified by appendiceal orifice and ileocecal valve. The colonoscopy was performed without difficulty. The patient tolerated the procedure well. The quality of the bowel preparation was adequate. The terminal ileum, ileocecal valve, appendiceal orifice, and rectum were photographed. Scope In: 9:42:17 AM Scope Withdrawal Time 0 hours 6 minutes 57 seconds Scope Out: 9:55:55 AM Total Procedure Duration Time 0 hours 13 minutes 38 seconds Findings: The perianal and digital rectal examinations were normal. A few small-mouthed diverticula were found in the recto-sigmoid colon. Impression: - Diverticulosis in the recto-sigmoid colon. - No specimens collected. Recommendation: - Discharge patient to home. - Resume previous diet. - Continue present medications. - Repeat colonoscopy in 10 years for screening purposes. Procedure Code(s): --- Professional --- G0121, Colorectal cancer screening; colonoscopy on individual not meeting criteria for high risk CPT copyright 2021 [employer]. All rights reserved. The codes documented in this report are preliminary and upon glass sagger review may be revised to meet current compliance requirements. Kenneth Ernst DO 07/09/2023 10:02:21 AM This report has been signed electronically. Number of Addenda: 0 Note Initiated On: 07/09/2023 9:34 AM
--- NOTE | 2023-07-09 10:03 | OP.CCLET_ITS ---
07/09/2023 Millie Adorno Re : Colonoscopy procedure for Yuli Méndez Dear Kyree This procedure was performed on July. My impressions and recommendations are as follows: Impressions : - Diverticulosis in the recto-sigmoid colon. - No specimens collected. Recommendations : - Discharge patient to home. - Resume previous diet. - Continue present medications. - Repeat colonoscopy in 10 years for screening purposes. My findings are described in the full procedure note, which is enclosed. If I can be of further assistance, please feel free to contact me at . Sincerely, Kenneth Ernst, 07/09/2023 10:02:21 AM This report has been signed electronically.
== END 2023-07-09 10:54 | disposition home or self-care (01) ==
LOC: EN 07:34 → AC 07:35
PROVIDERS: PCP Internal Medicine; Referring Provider Internal Medicine; Visit Provider Internal Medicine Gastroenterology
PROC: 0DJD8ZZ Inspection of Lower Intestinal Tract, Via Natural or Artificial Opening Endoscopic (ICD-10-PCS; CPT 45378; principal; 2023-07-09 08:40)
DX: Z12.11 Encounter for screening for malignant neoplasm of colon (principal); K57.90 Diverticulosis of intestine, part unspecified, without perforation or abscess without bleeding; E78.5 Hyperlipidemia, unspecified; Z79.899 Other long term (current) drug therapy
CPT/HCPCS: G0121; J7120; J2405

== ENCOUNTER → 2023-10-20 | Outpatient (CLI) | payer MEDICARE, OTHER, SELFPAY ==
--- NOTE | 2023-10-20 11:13 | US_ITS ---
STUDY: SUPERFICIAL ULTRASOUND - RIGHT AXILLA. REASON FOR EXAM: Female, 68 years old. 2 week history of right axillary pain. TECHNIQUE: A superficial ultrasound was performed with real-time and static martines-scale imaging. COMPARISON: None. FINDINGS: The right axilla was examined with ultrasound. There is a 9 mm x 5 mm x 4 mm benign-appearing lymph node. US/Ext Non Vasc Limited/Soft Tiss IMPRESSION: 9 mm x 5 mm x 4 mm benign-appearing lymph node. Electronically Signed: Chin Resendez MD at 13:26 EST ,
== END | disposition home or self-care (01) ==
LOC: US 11:11
PROVIDERS: PCP Internal Medicine; Referring Provider Internal Medicine; Visit Provider Internal Medicine
DX: M79.621 Pain in right upper arm (principal)
CPT/HCPCS: 76882

== ENCOUNTER → 2023-10-30 | Outpatient (CLI) | payer MEDICARE, OTHER, SELFPAY ==
[2023-10-30 09:42] LABS: Absolute Lymphocyte Count 1.37 X10^3/uL (0.83-4.51); Absolute Neutrophil Count 5.6 X10^3/uL (2.0-7.7); Basophil# 0.03 X10^3/uL; Basophil% 0.4 % (0-1); Eosinophil# 0.03 X10^3/uL; Eosinophils% 0.4 % (0-5); Hematocrit 41.3 % (37-47); Hemoglobin 13.5 g/dL (12.0-15.0); Lymphocyte # 1.37 X10^3/ul (0.83-4.51); Lymphocyte % 18.1 % (19-41); Mean Corp Hgb Conc 32.7 g/dL (32-36); Mean Corpuscular Hgb 30.5 pg (27.0-32.0); Mean Corpuscular Volume 93.4 fL (81-99); Mean Platelet Vol. 9.8 fl (6.2-12.0); Monocyte# 0.48 X10^3/uL; Monocyte% 6.3 % (0-10); NRBC Flagged by Analyzer 0 % (0-5); Neutrophil # 5.64 X10^3/uL (2.7-7.7); Neutrophil % 74.5 % (47-70); Platelet Count 317 K/mm3 (150-450); RBC Distribution Width CV 12.5 % (11.6-14.6); RBC Distribution Width SD 43.4 fl (35.1-43.9); Red Blood Count 4.42 M/mm3 (4.2-5.4); White Blood Count 7.6 K/mm3 (4.4-11.0)
[2023-10-30 10:09] LABS: AST(SGOT) 19 U/L (15-37); Alanine Aminotransfer ALT/SGPT 18 U/L (13-56)
--- NOTE | 2023-10-30 12:00 | BI_ITS ---
MAMMOGRAPHY - BILATERAL SCREENING REASON FOR EXAM: Female, 68 years old. Routine annual screening examination. PERTINENT HISTORY: Non-contributory. TECHNIQUE: Digital bilateral breast sergo (3D mammographic acquisition) in the CC and MLO projections. 2-D mediolateral oblique (MLO) and craniocaudad (CC) views of both breasts were obtained. CAD: Full Field Digital Mammography with Computer Added Detection was performed. COMPARISON: Comparison is made with prior study dated September 29, 2022 and August 21, 2021. FINDINGS: Breast Composition: There are scattered areas of fibroglandular density. There are no dominant masses or suspicious calcifications. No other significant abnormalities are identified. There has been no significant change since the prior study. BI/SCRN MAMM (CAD)W/SERGO BILAT IMPRESSION: Stable bilateral screening mammogram. Yearly follow-up mammogram recommended. (A) ASSESSMENT CATEGORY: BIRADS Category 1: Negative. A letter regarding these results will be sent to the patient by the facility within 30 days. Approximately 10% of breast cancers are not detected by mammography. A normal mammogram should not delay biopsy of a clinically suspicious abnormality. [id number] Electronically Signed: Chin Resendez MD at 12:45 EST ,
[2023-11-03 13:08] LABS: QNTFERON TB Mitogen Value > 10.00 IU/mL (.); QNTFERON TB Nil Value 0.01 IU/mL (.); QNTFERON TB1+ Ag Value 0.02 IU/mL (.); QNTFERON TB2+ Ag Value 0.01 IU/mL (.); QNTIFERON TB Positive Criteria Negative (Negative)
== END | disposition home or self-care (01) ==
LOC: OPBI 11:59
PROVIDERS: PCP Internal Medicine; Referring Provider Obstetrics & Gynecology; Visit Provider Obstetrics & Gynecology
DX: Z12.31 Encounter for screening mammogram for malignant neoplasm of breast (principal); L40.59 Other psoriatic arthropathy; Z08 Encounter for follow-up examination after completed treatment for malignant neoplasm; L40.0 Psoriasis vulgaris; L20.89 Other atopic dermatitis; L21.8 Other seborrheic dermatitis; R21 Rash and other nonspecific skin eruption; D22.5 Melanocytic nevi of trunk; L82.1 Other seborrheic keratosis; L57.8 Other skin changes due to chronic exposure to nonionizing radiation; Z71.89 Other specified counseling; Z85.828 Personal history of other malignant neoplasm of skin; Z79.899 Other long term (current) drug therapy
CPT/HCPCS: 36415; 77063; 77067; 84450; 84460; 85025; 86480

== ENCOUNTER 2024-01-25 10:26 | Outpatient (RCR) | payer SELFPAY | END 2024-01-25 19:00 | disposition home or self-care (01) | LOC: PT 10:26 | PROVIDERS: PCP Internal Medicine | DX: Z00.00 Encounter for general adult medical examination without abnormal findings (principal) ==

== ENCOUNTER → 2024-01-27 | Outpatient (CLI) | payer MEDICARE, OTHER, SELFPAY ==
--- NOTE | 2024-01-27 15:59 | RAD_ITS ---
INDICATION: right shoulder pain -- with ac joint as well EXAMINATION/TECHNIQUE: X-RAY - RIGHT XR Shoulder 4 VIEWS COMPARISON: FINDINGS: SOFT TISSUES: No soft tissue swelling or gas. No radiopaque foreign body. BONES/JOINTS: No acute fracture or subluxation.. Normal alignment. Preservation of the joint space.. No sclerotic or destructive changes observed. RAD/Shoulder min 2 Views IMPRESSION: Negative. Electronically Signed: Dereje Noonan DO at 17:08 EDT ,
--- NOTE | 2024-01-27 16:00 | RAD_ITS ---
STUDY: X-RAY - BILATERAL CLAVICLES REASON FOR EXAM: Female, 68 years old. RIGHT SHOULDER PAIN TECHNIQUE: 2 views of the acromioclavicular joints bilaterally with and without weights. COMPARISON: FINDINGS: Normal right clavicle. Normal right acromioclavicular articulation. Normal right sternoclavicular articulation. Normal left clavicle. Normal left acromioclavicular articulation. Normal left sternoclavicular articulation. Normal visualized bilateral pulmonary apices. RAD/A/C Jts Eleuterio w or w/o Wts IMPRESSION: Normal x-ray examination of the bilateral acromioclavicular joints with no separation noted. Electronically Signed: Dereje Noonan DO at 17:11 EDT ,
== END | disposition home or self-care (01) ==
PROVIDERS: PCP Internal Medicine; Referring Provider Internal Medicine; Visit Provider Internal Medicine
DX: M25.511 Pain in right shoulder (principal)
CPT/HCPCS: 73030; 73050

== ENCOUNTER → 2024-03-08 | Outpatient (CLI) | payer MEDICARE, OTHER, SELFPAY ==
--- NOTE | 2024-03-08 09:55 | BD_ITS ---
STUDY: DUAL ENERGY X-RAY ABSORPTIOMETRY / DXA REASON FOR EXAM: Female, 68 years old. [id number] TECHNIQUE: Bone Mineral Density (BMD) measurements of lumbar spine and bilateral hips were obtained. COMPARISON: Comparison is made with prior study dated January 30, 2022. FINDINGS: Lumbar Spine (L1-L4): g/cm2 (0.811) / T-score (-2.1) / Z-score (-0.2) Findings are suggestive of osteopenia with a fracture risk. Left Femur Total: g/cm2 (0.926) / T-score (-0.1) / Z-score (1.3) Left Femoral Neck: g/cm2 (0.763) / T-score (-0.8) / Z-score (0.9) Right Femur Total: g/cm2 (0.855) / T-score (-0.7) / Z-score (0.7) Right Femoral Neck: g/cm2 (0.766) / T-score (-0.7) / Z-score (0.9) The T-Scores on the most recent prior examination were: Lumbar Spine (L1-L4): There has been improvement of bone density since the previous examination. Left Femur Total: which represents an improvement of 2.9%. Right Femur Total: which represents a worsening of 0.5%. BD/Dexa Bone Density Study IMPRESSION: The patient is considered osteopenic as outlined below according to World [employer] Organization (WHO) criteria with a high fracture risk. There has been improvement of bone density since the previous examination. Reference Information: The T-score is the number of standard deviations above or below the standard which is normal for young adults at their peak bone mineral density. The World Health Organization (WHO) interprets the T-scores as follows: Above -1 Normal bone density Between -1 and -2.5 Osteopenia Equal to / or below -2.5 Osteoporosis As a practical clinical guideline, osteopenia may be graded as follows: Mild -1 through -1.5 Moderate -1.6 through -2.0 Severe -2.1 through -2.4 The Z-score is the number of standard deviations above or below age-matched controls. A Z-score of less than -1.5 would be considered abnormal. References: 1. NIH Osteoporosis and Related Bone Diseases www osteo.org 2. International Society for Clinical Densitometry www iscd.org 3. National Osteoporosis Foundation www nof.org Electronically Signed: Chin Resendez MD at 13:55 EDT ,
== END | disposition home or self-care (01) ==
LOC: OPBD 09:49
PROVIDERS: PCP Internal Medicine; Referring Provider Internal Medicine; Visit Provider Internal Medicine
DX: Z78.0 Asymptomatic menopausal state (principal)
CPT/HCPCS: 77080

== ENCOUNTER → 2024-07-04 | Outpatient (CLI) | payer MEDICARE, OTHER, SELFPAY ==
[2024-07-09 09:09] LABS: HPV APTIMA, High Risk Negative (Negative)
== END | disposition home or self-care (01) ==
LOC: LABSPEC 10:05
PROVIDERS: PCP Internal Medicine; Referring Provider Obstetrics & Gynecology; Visit Provider Obstetrics & Gynecology
DX: Z12.4 Encounter for screening for malignant neoplasm of cervix (principal)
CPT/HCPCS: 87624; 88175; G0145

== ENCOUNTER 2024-09-20 10:00 | Outpatient (RCR) | payer MEDICARE, OTHER, SELFPAY ==
--- NOTE | 2024-06-08 13:53 | HP.PTEVAL_ITS ---
Patient's Visit Information Visit Information Visit Information: BARBIE SANTOS is a 69 year old F referred to Physical Therapy by Dr. Stiven Mascorro MD with a diagnosis of R RCR05/26/24. Date of Evaluation: 06/08/24 Physical Therapist: Juarez Pillai, DPT, OCS, CSCS Visit Plan Frequency: 1-2x /Week Duration: 4 Months Plan: 1-2x/week for 4 months as needed to 2/2. start with PROM R shoulder until doctor f/u, scar massage as needed, educate on management. Progress when allowed by doctor.(06/25/24 visit) IE pendulums, stick er minimally for motion, elbow AROM, scap AROM, ball squeeze with pics and ice as needed all 3x/day Subjective Subjective: 05/26/24 RCR R shoulder after insidious onset RC tear. Used to play pickle ball and lift heavy baby. Had previous PT prior and got worse. Conservative treatment failed. Pain was intermittnet and 3-5/10 and hard time sleeping. Has been sling all day with wedge until Thursday. HEP: None. Repair went well. Saw dctor last week adn it went great. Pain level now is ache/10 1/10 Up to 4/10 with trying to sleep. Sleeping and dressing are difficult. Dress self shower self, is R handed. Sleep is 50/50 in recliner and wakes up 2-3 hrs. Retired, wants to do yoga, play pickleball and with grandkids, Has still been walking. wants to scrap picker baby. Pain R shoulder: Pain Intensity (Out of 10): 1 Pain Intensity Range: 1 and 5 Objective Objective: Walks in a sling and dons and doffs I. Good fit, 1/10 at rest. Walks and transfers bed and chair I. PROM R shoulder 100 flexion adn 40 er and 90 abduction limited by discomfort. scap aROM is 50% limited in R vs L. elbow is full acti e flexion on R slow, ext at -20 AROM vs full ext on L. wrisst and hand AROM B WFL. Inscions have healed wellw ith strips in place and no signs of excessive redness heat or swelling. Balance/Special Test Scores Quick DASH Score: 77.2725 Goals Goal 1:: ST: PROM 155 flexion, 70 er, 150 abd without wincing Goal Time Frame: 2-4 Weeks Goal 2:: skleep without interruption Goal Time Frame: 2-4 Weeks Goal 3:: Full aROM without pain Goal Time Frame: 8-12 Weeks Goal 4:: I appropriate home strength ex when allowed by doctor Goal Time Frame: 12-16 Weeks Goal 5:: Plan to return to fulla ctivities Goal Time Frame: 12-16 Weeks Goal 6:: qucikdash score 15 or better Goal Time Frame: 8-12 Weeks Rehabilitation Potential Physical Therapy Diagnosis: pain, stiffness, lack ROM and weakness after recent RCR R Rehabilitation Potential: Good Anticipated Interventions Patient/Client Instruction: Educate patient on: Condition and Plan of Care For the Purpose of:: To decrease pain, To increase ROM, To improve nutrient delivery to tissue, To improve muscle performance and motor function and To increase tolerance to activity/condition/position Therapeutic Exercise to Include: Passive ROM For the Purpose of:: To decrease pain, To decrease swelling/inflammation and To increase ROM Cryotherapy (ice pack, ice massage): Yes For the Purpose of:: To decrease pain and To decrease swelling/inflammation Text: Thank you for the opportunity to evaluate your patient. For Medicare and Medicare HMO plans, please review the plan of care and approve it. It will need to be FAXED BACK to us at [phone] for Medicare purposes. For Medicare only, by signing this I certify the plan of care. Please let me know if there are questions or concerns regarding this plan of care. Physician Signature: Date:
--- NOTE | 2024-08-05 12:45 | HP.PTREVAL ---
Re-Evaluation Intro: Dr. Stiven Mascorro MD, It has been my pleasure to treat BARBIE SANTOS over the last 11 visits for R RCR 05/26/24. Please see the progress note below for an update on the physical therapy plan of care! Subjective Subjective: Shoulder did good. No problem. Did not hold her back. Made Thanksgiving food 2 days ago without a problem, slight soreness. Will see doctor next week. sleeping is OK. Icing now and then. Motion is good. Exercises Objective Objective/Function: 138 AROM flexion and 150 abduction, 50 er, L4 IR. strength IR 4 er 3+, flexion 3+ all without pain but weak as expected. Doing well overall with ROM, fucniton and ready to start strengthening. Plan Plan Plan: weekly after doctor visit for progressiojn to phase 3 strengthening. Balance/Gait/Functional tests Balance/Special Test Scores Quick DASH Score: 77.2725 Goals Goals Goal 1:: ST: PROM 155 flexion, 70 er, 150 abd without wincing Goal Time Frame: 2-4 Weeks Goal Progress: Goal Met Goal 2:: skleep without interruption Goal Time Frame: 2-4 Weeks Goal Progress: Goal Met Goal 3:: Full aROM without pain Goal Time Frame: 8-12 Weeks Goal Progress: Progressing Goal 4:: I appropriate home strength ex when allowed by doctor Goal Time Frame: 12-16 Weeks Goal 5:: Plan to return to fulla ctivities Goal Time Frame: 12-16 Weeks Goal 6:: qucikdash score 15 or better Goal Time Frame: 8-12 Weeks Anticipated Interventions Anticipated Interventions Patient/Client Instruction: Educate patient on: Condition and Plan of Care For the Purpose of:: To decrease pain, To increase ROM, To improve nutrient delivery to tissue, To improve muscle performance and motor function and To increase tolerance to activity/condition/position Therapeutic Exercise to Include: Passive ROM and Active ROM Comment: assisted arom For the Purpose of:: To decrease pain, To decrease swelling/inflammation and To increase ROM Cryotherapy (ice pack, ice massage): Yes For the Purpose of:: To decrease pain and To decrease swelling/inflammation Re-Evaluation Ending Re-evaluation ending: Please do not hesitate to contact me at [phone] by phone or if you have questions or concerns regarding this new plan of care! Sincerely, Juarez Pillai, DPT, OCS, CSCS
--- NOTE | 2024-09-20 10:51 | HP.PTDCSUM ---
Discharge Summary D/C summary: It has been my pleasure to treat BARBIE SANTOS referred by Dr. Stiven Mascorro MD, with the diagnosis of R RCR 05/26/24 for a total of 16 visit(s). Discharge Date: 09/20/24 Please see the following information for a summary of their discharge status. Subjective Subjective: Doing OK, External rotation is challenging but has increased phase 3 workout. Overall doing well and has been in gym a couple times. Ready for full body workout today and d/c. Pain R shoulder: Pain Intensity (Out of 10): 0 Overall Improvement % Improvement: 95 Objective Objective/Function: AROM is good and -5 degrees flexion/abd vs L but funcitonal. Er is65, IR to L2 strength is 4 flex and abduction and 4 er, 4 IR on R vs 4+ L. Doing well and tolerated todays workout well and will continue 3x/week on own. Goals Goal 1:: ST: PROM 155 flexion, 70 er, 150 abd without wincing Goal Progress: Goal Met Goal 2:: skleep without interruption Goal Progress: Goal Met Goal 3:: Full aROM without pain Goal Progress: Progressing Goal 4:: I appropriate home strength ex when allowed by doctor Goal Progress: Goal Met Goal 5:: Plan to return to fulla ctivities Goal Progress: Goal Met Goal 6:: qucikdash score 15 or better Goal Progress: Progressing Plan Plan: d/c to [facility] D/C Information d/c sentence: If there are questions or concerns regarding this patient's physical therapy, please feel free to call me at [phone]. Thank you for the referral of this patient. Sincerely, Juarez Pillai, DPT, OCS, CSCS Balance/Gait/Functional tests Balance/Special Test Scores Quick DASH Score: 15.0000 Improvement % Improvement: 95
== END 2024-09-20 19:00 | disposition home or self-care (01) ==
LOC: PT 10:00
PROVIDERS: PCP Internal Medicine; Referring Provider Orthopaedic Surgery; Visit Provider Orthopaedic Surgery
DX: M75.121 Complete rotator cuff tear or rupture of right shoulder, not specified as traumatic (principal)
CPT/HCPCS: 97110; 97140; 97161; 97530

== ENCOUNTER → 2024-11-14 | Outpatient (CLI) | payer MEDICARE, OTHER, SELFPAY ==
--- NOTE | 2024-11-14 10:15 | BI_ITS ---
PROCEDURE: SCRN MAMM (CAD)W/SERGO BILAT REASON FOR EXAM: F, Age 69 y/o, routine annual mammogram. No known family history. TECHNIQUE: Bilateral screening digital breast tomosynthesis with 2D and 3D images. Computer aided detection. COMPARISON: Prior exam(s) dating back to October 30, 2023.. FINDINGS: There are scattered areas of fibroglandular density. Stable fat containing axillary lymph nodes. No suspicious masses, areas of developing architectural distortion, or suspicious calcifications. BI/SCRN MAMM (CAD)W/SERGO BILAT IMPRESSION: BI-RADS 2: BENIGN. RECOMMEND ANNUAL MAMMOGRAPHIC SCREENING. Follow-up code: Routine Follow-up The patient will be notified of the results by letter. Reading Location: [place] [id number]
== END | disposition home or self-care (01) ==
LOC: OPBI 10:15
PROVIDERS: PCP Internal Medicine; Referring Provider Obstetrics & Gynecology; Visit Provider Obstetrics & Gynecology
DX: Z12.31 Encounter for screening mammogram for malignant neoplasm of breast (principal)
CPT/HCPCS: 77063; 77067

== ENCOUNTER → 2025-03-24 | Outpatient (CLI) | payer MEDICARE, OTHER, SELFPAY ==
--- NOTE | 2025-03-24 13:20 | MRI_ITS ---
PROCEDURE: BRAIN W/WO CONTRAST 03/24/2025 REASON FOR EXAM: ATTN IAC TECHNIQUE: BRAIN W/WO CONTRAST Multiplanar and multisequence images were obtained. CONTRAST: Kylah scan VOLUME: 13 mL FINDINGS: Study tailored to evaluation of the internal auditory canals. Normal craniocervical junction. No suprasellar mass lesion. No acute or chronic hemorrhage. No abnormal diffusion. No hydrocephalus. Brainstem and cerebellum unremarkable. No abnormal flow voids. Symmetric orbits. There is right sphenoid mucosal thickening without air-fluid level. Negative for significant intracranial demyelination. Minimal punctate leukomalacia left posterior frontal white matter. Normal optic chiasm. No suprasellar mass lesion. Thin-section volumetric images of the skull base demonstrate symmetric appearance of the vestibule and cochlear without intra canalicular contour deformity. Postcontrast skull base images demonstrate no pathologic brainstem, cisternal, intra canalicular or labyrinthine enhancement. MRI/Brain W/WO Contrast IMPRESSION: No significant abnormality. Sphenoid mucosal thickening Reading Location: [id number]
== END | disposition home or self-care (01) ==
LOC: OPMRI 13:09
PROVIDERS: PCP Internal Medicine; Referring Provider Otolaryngology; Visit Provider Otolaryngology
DX: R42 Dizziness and giddiness (principal)
CPT/HCPCS: 70553; A9581

== ENCOUNTER → 2025-07-07 | Outpatient (CLI) | payer MEDICARE, OTHER, SELFPAY ==
[2025-07-07 10:50] LABS: Creatinine, Urine (random) 50.50 mg/dL (28.00-217.00)
[2025-07-07 11:26] LABS: AST(SGOT) 24 U/L (<=31); Alanine Aminotransfer ALT/SGPT 13 U/L (<=34); Albumin, Serum 4.1 g/dL (3.4-4.8); Alkaline Phosphatase 85 U/L (35-104); Anion Gap 8 (5-15); BUN 15 mg/dL (4-19); BUN/Creat Ratio 19.8 RATIO (10-20); Calcium,Total 9.6 mg/dL (7.6-11.0); Carbon Dioxide 26.9 mmol/L (21.0-32.0); Chloride 103 mmol/L (98-108); Cholesterol 230 mg/dL (<=200); Globulin 2.8 g/dL (2.2-4.2); Glucose 94 mg/dL (70-99); Low Density Lipoprotein Calc. 144 mg/dL; Potassium 4.5 mmol/L (3.3-5.1); Triglycerides 100 mg/dL; Very Low Density Lipoprotein 20 mg/dL (5-40); Vitamin D,25 Hydroxy 53.1 ng/mL (30-100); cholesterol:hdl ratio screen 3.36
[2025-07-07 17:52] LABS: Microalbumin,Random Urine < 12.0 mg/L (<20 mg/L)
== END | disposition home or self-care (01) ==
LOC: MTLAB 07:44
PROVIDERS: PCP Internal Medicine; Referring Provider Internal Medicine; Visit Provider Internal Medicine
DX: R73.09 Other abnormal glucose (principal); E55.9 Vitamin D deficiency, unspecified; E78.49 Other hyperlipidemia
CPT/HCPCS: 36415; 80053; 80061; 82043; 82306; 82570; 83036